=== PATIENT | male | born 1955 | race Caucasian/White ===

== ENCOUNTER 2019-08-12 07:49 | Inpatient (IN) | payer OTHER ==
[~2019-08-12] VITALS: Ht 177.8 cm; Wt 93.0 kg
[~2019-08-12 07:49] MED LIST: AMLODIPINE BESY10 MG PO; HYDROCHLOROTHIA25 M2 PO; LISINOPRIL40 MG PO; TYLENOL325 MG PO
--- NOTE | 2019-08-12 08:26 | EKG ---
[facility] [place] [address] ELECTROCARDIOGRAM REPORT Name: LELAND CHANEL Room #: 150-5 [facility] M.R.#: [id number] Admission: 08/12/19 Attend Phys: Joel Sánchez MD Discharge: Date of : 55 Report #: [id number] THIS REPORT FOR: cc: Saskia Venegas MD, Michelle MD Lundgren,Dionicio Bowen MD [facility] ~ THIS REPORT FOR: //name// [facility] Test Date: 2019-08-12 Test Time: 08:21:12 Pat Name: LELAND CHANEL Department: Room: 150 5 Gender: M Seam Hammerer: Kassie JACOBO : 1955 Requested By: Joel Sánchez Order Number: [id number] MD: Dionicio Dotson Measurements Intervals [place] Rate: 85 P: 43 OR: 173 QRS: -1 QRSD: 104 T: -20 QT: 379 QTc: 451 Interpretive Statements Sinus rhythm Borderline T abnormalities, inferior leads No previous ECG available for comparison Electronically Signed On 08-12-2019 8:24:53 MACHINE II COREMAKER by Dionicio Dotson [email or web address] <ELECTRONICALLY SIGNED> By: Dionicio Dotson MD, [facility] 08/12/19 0824 0 0 Dionicio Dotson MD, [facility] /EPI
[2019-08-12 08:47] LABS: CALCIUM 8.8 mg/dL (8.5-10.1); CREATININE 1.1 mg/dL (0.7-1.3); POTASSIUM 3.3 mmol/L (3.5-5.1)
[2019-08-12 10:38] VITALS: BP 122/81
[2019-08-12 14:30] VITALS: BP 129/76
--- NOTE | 2019-08-12 15:33 | NUR ---
64 YO MALE ADMITTED TO 444 FROM PACU. ORIENTED X4 THOUGH IS DROWSEY. 02@3L PER NC. IV INTACT IN L HAND. BILAT. LOWER EXTREMITIES ARE WRAPPED WITH JOANA BANDAGE. IMMOBILIZER NOTED TO RAMESH TOWNSEND DENIES PAIN AT THIS TIME. TOLERATING CLEAR LIQUID.
[2019-08-12 22:00] VITALS: BP 133/96
--- NOTE | 2019-08-13 04:08 | NUR ---
RECIEVED CARE OF PATIENT AT 1900. PATIENT ALERT AND ORIENTED X4. PATIENT HAS DRESSINGS ON LUCILLE LOWER EXT WITH A BRACE OVER THAT. CHECKED ON PATIENT FREQUENTLY D/T APNEA MONITOR GOING OFF. PATIENT STATES HE HAS ALWAYS BREATHED RAPID AND SHALLOW. O2 SAT REMAIN IN THE UPPER 90'S WITH O2 AT 3L. USES URINAL. SALINE LOCK IN L HAND PATENT. C/O PAIN, MED GIVEN WITH GOOD RELIEF. SLEPT OFF AND ON DURING NIGHT.
[2019-08-13 04:25] VITALS: BP 114/60
[2019-08-13 07:30] VITALS: BP 148/89
[2019-08-13 07:35] VITALS: BP 168/51
--- NOTE | 2019-08-13 07:53 | O ---
[facility] [place] [address] OPERATIVE REPORT Name: LELAND CHANEL Room #: 444-P [facility]..#: [id number] Admission: 08/12/19 Attend Phys: Joel Sánchez MD Discharge: Date of : 55 Report #: [id number] THIS REPORT FOR: cc: Saskia Venegas MD,Saskia Sánchez,Joel Benítez MD ~ CC: Joel Cassidy DATE OF SERVICE: 08/12/2019 PREOPERATIVE DIAGNOSIS: Bilateral distal quadriceps tendon rupture. POSTOPERATIVE DIAGNOSIS: Bilateral distal quadriceps tendon rupture. PROCEDURE: Bilateral quadriceps repair. SURGEON: Joel Sánchez MD INDICATIONS: This 64-year-old gentleman fell on steps injuring both knees. Clinical exam is clearly consistent with complete rupture of the distal quadriceps tendon at both knees. There are no fractures. He has no other injuries. We have discussed treatment options and elected to go ahead with surgical repair. DESCRIPTION OF PROCEDURE: The patient was taken to the operating room where he was placed under general anesthesia. Prophylactic intravenous antibiotics were administered. Both lower extremities were meticulously prepped and draped and bilateral tourniquets applied. Attention was first directed to the right lower extremity. The tourniquet was inflated to 300 mmHg. An anterior longitudinal skin incision was made exposing the distal quadriceps and the patella, complete disruption of the quadriceps tendon with severe fraying and disruption extended out completely through the medial and lateral retinaculum was encountered. There was a long strand of quadriceps tendon which was still attached to the patella, which I freed up and I used subsequently to weave back in to oversew the repair. Once the remnants of the tendon were debrided and a good attachment point created on the patella, four #2 FiberWire sutures were used woven into the distal central portion of the quadriceps. These were then passed through drill holes in the patella and the repair was brought back down to bone in a firm and even fashion. The sutures were left long as the knots were tied at the distal aspect of the patella. They were then brought over the patella in a [id number] reinforcement of the repair. This incorporated the long portion of the quadriceps tendon, which had remained with the patella and was woven back up into the quadriceps and incorporated into the repair. Once this central portion had been repaired, the medial and lateral retinaculum were closed using multiple #1 Vicryl sutures. At the conclusion, there seemed to be a [facility] [address] [place] [address] OPERATIVE REPORT Name: LELAND CHANEL Room #: 444-P [facility] M.R.#: [id number] Admission: 08/12/19 Attend Phys: Joel Sánchez MD Discharge: Date of : 55 Report #: [id number] satisfactory repair with a good solid reattachment and a good closure of both the medial and lateral retinaculum. The tourniquet was deflated. Good hemostasis was confirmed. The wound was copiously irrigated. The deeper tissues and subcutaneous tissues were closed with 0 Monocryl. The skin was closed with skin clif. A sterile dressing was applied. Attention was then directed to the left lower extremity and a similar procedure performed. The thigh tourniquet was inflated to 300 mmHg. An anterior longitudinal skin incision was made. There was a similar injury with complete disruption of the central quadriceps tendon, avulsing this from the upper aspect of the patella. The damage extended out completely in to the medial and lateral retinaculum as well as on the other side. The remnants of the tendon were debrided and cleaned and then four #2 FiberWire sutures were placed in the central portion of the tendon. These were passed through drill holes in the patella and the repair was brought down firmly to bone. There was some remaining fascia in periosteum, which could be overlapped over the repair, reinforcing this using some additional #1 Vicryl sutures. The medial and lateral retinaculum were repaired also with #1 Vicryl. The tourniquet was deflated. Satisfactory hemostasis was confirmed. The deeper tissues and subcutaneous tissues were closed with 0 Monocryl. The skin was closed with skin clif. A sterile dressing was applied. A knee brace was applied on both sides, locking the knee in full extension. The patient was then awakened and returned to recovery room in good condition. <ELECTRONICALLY SIGNED> By: Joel Sánchez MD 08/13/19 0753 1312 1337 Joel Sánchez MD /nt
--- NOTE | 2019-08-13 14:44 | NUR ---
PT ADMITTED RELATED TO LUCILLE.QUADRICEPS REPAIR. CM REVIEWED CHART AND SPOKE WITH CARE TEAM. CM MET WITH PT AT BEDSIDE THIS DAY. PT IS A&O X4. CM ROLE INTRODUCED. PT INDICATED HE LIVES IN A HOUSE WITH HIS WITH 5 STEPS TO ENTER THROUGH FRONT AND 3 STEEPER STEPS THROUGH GARAGE. PT INDICATED NO STEPS INSIDE. 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 PT INDICATED HE PLANS TO DISCHARGE HOME WITH HH ONCE MEDICALLY STABLE. PT INDICATED HE IS INTERESTED IN A WHEELCHAIR FOR HOME USE AND A FWW. CM TO FOLLOW INDICATED WITH DC PLANNING.
[2019-08-13 16:34] VITALS: BP 125/75
[2019-08-13 19:35] VITALS: BP 116/83
--- NOTE | 2019-08-13 19:42 | NUR ---
PT CARE ASSUMED AT 0700. A&Ox4. PT IS VERY EMOTIONAL AND IS UPSET AT HAVING THIS ACCIDENT AND THE LONG RECOVERY HE WILL HAVE AFTER YESTERDAYS SURGERY. PT EVALUATED PATIENT TODAY AND PT STATUS WAS CHANGED FROM OBSESRVATION TO INPATIENT PER DR. IVAN. PT GAVE PT HIS HOME MEDS THIS MORNING IN THE ROOM AND AFTER MYSELF BEING INFORMED OF THIS I EDUCATED PT AND AND INFORMED MD. MD IS AWARE AND HAS ORDERD FOR THIS MEDS TO BE STARTED IN THE AM. CASE MANAGMENT NEEDS A SCRIPT FROM DR. IVAN FOR A WHEELCHAIR FOR THE PATIENT TO BE DISCHARGED WITH. PT HAS A URINAL AT BED SITE. PAIN IS BEING MANAGED WELL WITH MEDICATION. FALL RISK IN PLACE. IV IS PATENT WITH NO REDNESS OR EDEMA AND IS SALINE LOCKED. CALL LIGHT IN REACH. WILL CONTINUE TO MONITOR.
[2019-08-14] VITALS (7 sets, daily range): BP systolic 122–129; BP diastolic 77–85
--- NOTE | 2019-08-14 02:38 | NUR ---
RECIEVED CARE OF PATIENT AT 1900. PATIENT ALERT AND ORIENTED X4. DRESSING AND BRACES ON LUCILLE LOWER EXT INTACT. PATIENT EXPRESSED THE FACT HE DID NOT REALIZE HOW MUCH EFFORT AND PAIN IT WOULD BE TO MOVE AND GET UP. C/O PAIN X1, MED GIVEN WITH GOOD RELIEF. PATIENT SLEPT OFF AND ON DURING NIGHT.
--- NOTE | 2019-08-14 11:48 | NUR ---
FAXED REFERRAL TO [facility] HH SPOKE WITH NESHA IN INTAKE SHE RECEIVED REFERRAL AND CAN ACCEPT. PT TO DC OVER WEEKEND PLEASE FAX DC ORDERS/SUMMARY TO [phone] AND CALL [phone] TO NOTIFY THEM OF DC.
--- NOTE | 2019-08-14 14:40 | NUR ---
CARE TEAM INDICATED THAT PT IS ANTICIPATED TO DISCAHRGE HOME TOMORROW Saturday08/15/19. CM ORDERED PT A STANDARD MANUAL WHEELCAHIR WIT HBILATERAL LEG RESTS THROUGH APRIA. WC IS TO BE DELIVERED TO PT'S HOME TODAY 08/14/19. PT'S SPOUSE IS AWARE AND AT HOUSE TO RECIEVE IT. SHE IS ALSO AWAITING DELIVERY OF RENTAL LIFT RECLINER. PT HAS A FWW FOR USE UPON DC. PT IS TO HAVE PT, OT, NURSING, AND SW THROUGH [facility] UPON DC. PT AND SPOUSE AWARE OF THIS WELL. SPOUSE PRICING OUT WC [facility]SP[facility] FOR FOLLOW UP APPOINTMENT CM SPOKE TO HER ABOUT [facility] SHE HAD HEARD OF THEM. NO OTHER DC NEEDS ANTICPATED AT THIS TIME. CM TO FOLLOW INDICATED SHOULD ANY OTHER DC NEEDS ARISE.
--- NOTE | 2019-08-14 18:44 | NUR ---
VSS-AFEBRILE. OOB TO CHAIR FOR MEALS. PAIN WELL CONTROLLED WITH PO MEDICATIONS. BILATERAL KNEE DRESSINGS IN PLACE AND NO DRAINAGE PRESENT. CALLS APPROPRIATELY FOR ANY NEEDED ASSISTANCE.
--- NOTE | 2019-08-15 02:03 | NUR ---
PT C/O PAIN ON HIS KNEES,MANAGED WITH MED.PT REQUESTED FOR AND RECEIVED FLEXERIL AND TRAZADONE FOR MUSCLE SPASM AND SLEEP.PT SLEEPING COMFORTABLY ON HIS BED AT THIS TIME.VSS.URINAL AT BEDSIDE.PT ABLE TO MAKE HIS NEEDS KNOWN.FAL PRECAUTIONS IN PLACE,CALL LIGHT WITHIN REACH.
[2019-08-15 04:00] VITALS: BP 125/77
[2019-08-15 07:59] VITALS: BP 127/81
[2019-08-15 10:34] VITALS: BP 127/85
--- NOTE | 2019-08-15 11:08 | NUR ---
DC ORDRES RECIEVED. IV REMOVED FROM L HAND. DC INSTRUCTIONS, SCRIPTS AND F/U APPOINTMENT REVIEWED WITH PT. PT ESCORTED BY ANALYTICS SPECIALIST WITH W/C TO MAIN ENTRANCE.
--- NOTE | 2019-08-17 10:14 | D ---
[facility] [place] [address] DISCHARGE SUMMARY Name: LELAND CHANEL Room #: 444-P [facility] M.R.#: [id number] Admission: 08/13/19 Attend Phys: Joel Sánchez MD Discharge: 08/15/19 Date of : 55 Report #: [id number] THIS REPORT FOR: cc: Saskia Venegas MD,Saskia Sánchez,Joel Benítez MD ~ THIS REPORT FOR: //name// CC: Joel Cassidy DATE OF SERVICE: 08/15/2019 FINAL DIAGNOSIS: Bilateral quadriceps tendon rupture with surgical repair. HISTORY: This 64-year-old gentleman fell on steps injuring both knees. Clinical exam was consistent with severe complete rupture of the quadriceps tendon bilaterally. We elected to go ahead with surgical repair. HOSPITAL COURSE: The patient was admitted and taken to the operating room on 08/11. He underwent bilateral quadriceps tendon repair. Postoperatively, his course was difficult given the severe bilateral nature of the injury making movement and ambulation quite difficult. Both knees are protected in locking hinged knee braces without much knee flexion at all. He had moderate discomfort, but this was managed with oral pain medication. He was started on anticoagulation. He was started on physical therapy and made slow progress with movement given the bilateral nature of his injury. We made plans and accommodations for either home or extended care facility. Ultimately, the patient and his feel he is able to manage at home with appropriate assistance. Plan is for discharge home today on 08/14. DISCHARGE MEDICATIONS: Include acetaminophen 325 mg q. 4 hours p.r.n. for mild pain, hydrocodone 10 mg q. 4-6 hours p.r.n. for moderate or severe pain, Xarelto 10 mg daily, lisinopril 40 mg daily, hydrochlorothiazide 25 mg daily, amlodipine 10 mg daily. He will continue a regular diet and very limited activity gradually advancing at home as comfort allows. I have advised him to continue with his knee braces, which are essentially locked in full extension during any transfers or attempted ambulation. He may begin very limited gentle range of motion when he is resting or seated or in bed. Dressings will be changed as needed at home. I have asked [address] [address] DISCHARGE SUMMARY Name: LELAND CHANEL LIZA Room #: 444-P [facility] ..#: [id number] Admission: 08/13/19 Attend Phys: Joel Sánchez MD Discharge: 08/15/19 Date of : 55 Report #: [id number] him to call me should there be any problems or questions. We will plan to see him back in the office in about 4 or 5 days for followup and dressing change. <ELECTRONICALLY SIGNED> By: Joel Sánchez MD 08/17/19 1014 0722 0744 Joel Sánchez MD /ruchi
[2019-08-17 16:31] VITALS: BP 127/85
--- NOTE | 2019-08-17 16:36 | NUR ---
CM RECIEVED PC FROM SPOUSE ON THIS AFTERNOON. PT DISCHARGED HOME SATURDAY. SPOUSE INDICATED SHE HAD CONTACTED [facility] AND THEY HADN'T CONTACTED HER TO SET UP INITIAL ASSESSEMENT VISIT AND WAS TOLD THEY NEVER GOT FINAL DC ORDERD FAXED. CM NOTE INDICATES THEY NEED TO BE FAXED AND WHERE. CM PRINTED AND FAXED ORDERS TO [facility]. CM NOTIFIED CM DOUBLE END TRIMMER.
== END 2019-08-15 11:29 | disposition home health service (06) | DRG 502 ==
LOC: OR 07:49 → TBA 07:49 → OR 10:34 → 4S 14:51 → OR 08-13 17:28 → 4S 08-13 17:29
PROVIDERS: ADMIT Orthopaedic Surgery
PROC: 0LQQ0ZZ Repair Right Knee Tendon, Open Approach (ICD-10-PCS; principal; 2019-08-12)
PROC: 0LQR0ZZ Repair Left Knee Tendon, Open Approach (ICD-10-PCS; principal; 2019-08-12)
DX: S76.111A Strain of right quadriceps muscle, fascia and tendon, initial encounter (principal); S76.112A Strain of left quadriceps muscle, fascia and tendon, initial encounter; W17.89XA Other fall from one level to another, initial encounter; Y93.89 Activity, other specified; Y92.89 Other specified places as the place of occurrence of the external cause; Y99.8 Other external cause status; Z79.899 Other long term (current) drug therapy
CPT/HCPCS: 10102; 50010; 50101; 50386; 56521; 56525; 56526; 56530; 57091; 62110; 62900; 70005